=== PATIENT | male | born 1995 | race Caucasian/White ===

== ENCOUNTER 2024-06-16 10:12 | Emergency (ER) | payer MEDICAID ==
[~2024-06-16] VITALS: Ht 185.4 cm; Wt 79.9 kg
[2024-06-16 10:52] VITALS: BP 142/80; PULSE 68; RESP 18; TEMP 98.9; O2SAT 97
[2024-06-16 11:31] LABS: Basophils # (auto) 0.1 10 ^3/uL (0-0.2); Basophils % (auto) 1.1 % (0.0-2.0); Eosinophils # (auto) 0 10 ^3/uL (0-0.8); Eosinophils % (auto) 0.6 % (0.0-7.0); Hematocrit 44.7 % (41.0-53.0); Hemoglobin 15.6 g/dL (13.5-17.5); Lymphocytes # (auto) 1.2 10 ^3/uL (0.4-5.4); Mean Corpuscular Hemoglobin 31.9 pg (28.0-32.0); Mean Corpuscular Hgb Conc. 34.8 g/dL (32.0-36.0); Mean Corpuscular Volume 91.7 fL (80.0-100.0); Monocytes # (auto) 0.5 10 ^3/uL (0-1.3); Monocytes % (auto) 8.2 % (0.0-12.0); Neutrophils # (auto) 4.1 10 ^3/uL (1.6-8.6); Neutrophils % (auto) 70.1 % (37.0-80.0); Nucleated Red Blood Cells % 0.1 %; Red Blood Cells 4.88 10^6/uL (4.5-5.90); White Blood Cell 5.8 10^3/uL (4.4-10.8)
[2024-06-16 11:38] LABS: Urine Bacteria None Seen /hpf (None Seen)
[2024-06-16 11:46] LABS: Albumin 4.8 g/dL (3.2-4.8); Alkaline Phosphatase 80 U/L (46-116); Anion Gap 2 (5-15); Aspartate Aminotransferase 16 U/L (13-40); BUN/Creatinine Ratio 8.9 (10.0-20.0); Blood Urea Nitrogen 9 mg/dL (9-23); Calcium 10.1 mg/dL (8.7-10.4); Carbon Dioxide 31 mmol/L (20-30); Chloride 105 mmol/L (98-107); Glucose 94 mg/dL (74-106); Potassium 4.4 mmol/L (3.5-5.1); Sodium 138 mmol/L (136-145)
[2024-06-16 11:47] LABS: Bilirubin, Total 0.4 mg/dL (0.2-1.0); Total Protein 7.5 g/dL (5.7-8.2)
[2024-06-16 11:51] LABS: Urine Blood Negative /uL (Negative); Urine Clarity Clear (Clear); Urine Color Colorless (Yellow); Urine Protein, UAD Negative (Negative); Urine Specific Gravity 1.005 (1.001-1.035); Urine Urobilinogen Normal (Negative); Urine WBC <1 /hpf (0 - 3)
[2024-06-16 11:55] LABS: Alanine Aminotransferase 12 U/L (7-40)
[2024-06-16 12:22] LABS: Rapid Strep A Screen-Throat Negative
[2024-06-16] MEDS ORDERED: DICY10CA PO (12:39)
[2024-06-16] MEDS ORDERED: LACT10SO3 PO (12:39)
[2024-06-16] MEDS ORDERED: AZIT-185 PO (12:39)
[2024-06-16] MEDS: cefTRIAXone SOD 1,000 MG VL IM ONE (12:43)
[2024-06-16] MEDS ORDERED: LIDOCAINE 1% HCL (LOCAL ANESTH.) INJ 20ML MDV ONE (12:47)
[2024-06-16 13:26] LABS: Lipase 64 U/L (12-53)
== END 2024-06-16 13:07 | disposition home or self-care (01) ==
LOC: ER 10:12 → EEVIPCON 10:12 → ER 13:06
DX: K59.00 Constipation, unspecified (principal); J03.90 Acute tonsillitis, unspecified; F41.9 Anxiety disorder, unspecified; Z79.899 Other long term (current) drug therapy
CPT/HCPCS: 36415; 74176; 80053; 81001; 83690; 85025; 87070; 87880; 96372; 99285; J0696; J2001